=== PATIENT | male | born 1965 | race Caucasian/White ===

== ENCOUNTER 2016-05-22 17:48 | Observation (INO) | payer BC ==
--- NOTE | ~2016-05-22 | HP ---
History And Physical [address] [place]. [address] NAME: FAHAD RAM : 61 STATUS : ADM Abigail PAT#: [id number] AGE: 50 ADM/REG DATE : 05/22/16 MR#: [id number] REPORT SERV DATE: 05/23/16 DICTATED BY: DATE: REPORT STATUS : Draft TRANSCRIBED BY: MODL DATE: 05/23/16 DATE OF ADMISSION: 05/22/2016 CHIEF COMPLAINT/REASON FOR ADMISSION: Chest pain and known history of coronary artery disease. PRIMARY MAGAZINE JOURNALIST: Daksha Valdez M.D. HISTORY OF PRESENT ILLNESS: Mr. Fahad Ram is a very pleasant 50-year-old gentleman who is known to me from clinic. He has a known history of coronary artery disease, 2-vessel, in the mid anterior descending artery and distal circumflex artery and had a PCI to his left anterior descending artery in 11/2015. He was doing well on an outpatient basis and then yesterday at work he developed left-sided chest pain. It felt pressure like in nature. It was 6/10 in intensity. It radiated to his neck and his head. It was associated with shortness of breath and dizziness and lasted for approximately two hours. He was given nitroglycerin in EMS transport and it did not really help his chest pain. The patient is on anti-anginal agents including a long-acting nitroglycerin and calcium channel len and continues to present with chest pain. PAST MEDICAL HISTORY: 1. Coronary artery disease. Cardiac catheterization performed on 12/16/2015 demonstrated disease in the LAD that he underwent PCI with a drug-eluting stent at that time. The patient also had a 60% stenosis in the first obtuse marginal and the mid circumflex. 2. Dyspnea. 3. Hypertension. 4. Obstructive sleep apnea. SOCIAL HISTORY: The patient denies smoking, drinking, or using drugs. FAMILY HISTORY: Consistent with myocardial infarction and cardiac arrhythmias in his brother. His father had diabetes mellitus, congestive heart failure, hyperlipidemia, and history of arrhythmia. His mother had a history of myocardial infarction and hypertension as well as cardiac arrhythmias and congestive heart failure. REVIEW OF SYSTEMS: All systems were reviewed and is negative except for dictated in HPI. PHYSICAL EXAMINATION: VITAL SIGNS: Blood pressure 123/68, respirations 20, and oxygen saturations 98% on room air. GENERAL: Mr. Ram is a well-groomed 50-year-old gentleman, who is in no acute distress. NECK: No jugular venous distention. No carotid bruits auscultated. HEART: Regular rate and rhythm. Normal S1, S2. I could not appreciate murmurs, rubs, or gallops. LUNGS: Clear to auscultation in all iqbal. History And Physical [address] [address] NAME: FAHAD RAM : [birth year] STATUS : ADM Abigail PAT#: [id number] AGE: 50 ADM/REG DATE : 05/22/16 MR#: [id number] REPORT SERV DATE: 05/23/16 DICTATED BY: DATE: REPORT STATUS : Draft TRANSCRIBED BY: DELVIS DATE: 05/23/16 ABDOMEN: Soft and nontender. EXTREMITIES: Warm and well perfused. There is no pitting edema. Danny test performed of the right wrist demonstrated dual blood supply to the palm of the right hand. MUSCULOSKELETAL: No clubbing or cyanosis of digits. NEUROLOGIC: I could not appreciate focal neurologic deficits. DATA: Cardiac enzymes are negative x2. Hemoglobin 13.3, hematocrit 39.6, and platelet count is 126. Sodium 140, potassium 3.9, BUN 10, creatinine 0.76. An EKG performed on admission documented sinus bradycardia. Otherwise, there were no ischemic ST-T segment changes. Chest x-ray performed on admission documented no evidence of acute cardiopulmonary disease. Laboratory results: As below. The patient had a prior myocardial perfusion stress test, which has been performed in the past six months. Lipid panel performed on 05/23/2016 demonstrated total cholesterol of 110, HDL 50, LDL of 46, triglycerides of 73. Last classes myocardial perfusion stress test performed on 01/16/2016 demonstrated atypical chest pain throughout this study, but did not demonstrate ischemia. IMPRESSION/REPORT/PLAN: 1. Chest pain. 2. Known coronary artery disease, 2-vessel, status post PCI to the left anterior descending artery, 12/16/2015. 3. Hypertension. 4. Obstructive sleep apnea. RECOMMENDATIONS: 1. I discussed the risks, benefits, and alternatives of cardiac catheterization with the patient including heart attack, stroke, , kidney failure, irregular heart rhythms, need for emergency surgery, pain, bleeding, and infection, and the patient is agreeable to proceed. 2. We will continue his home medications including amlodipine, aspirin, atorvastatin, Coreg, isosorbide mononitrate, Brilinta, and lisinopril. Additional recommendations pending clinical course. LANA/DELVIS Daksha Valdez M.D. / [id number] History And Physical [address] [place]. [place]. [address] NAME: FAHAD RAM : 61 STATUS : ADM Abigail PAT#: [id number] AGE: 50 ADM/REG DATE : 05/22/16 MR#: [id number] REPORT SERV DATE: 05/23/16 DICTATED BY: DATE: REPORT STATUS : Draft TRANSCRIBED BY: MODL DATE: 05/23/16 CC: Alejandrina Arreola SARA E
[~2016-05-22 17:48] MED LIST: ASA5GR PO; ASAB PO; BRILINTA90 MG PO; CELEXA20 PO; DENIES HOME MEDS; IBU-200200 MG PO; IMDUR30 PO; LIPITOR10 PO; LIPITOR40 PO; MULTIPLE VIT PO; NITROQUICK0.4 MG SL; PRIN5 PO; PROAIR HFA INH
[2016-05-22 18:22] LABS: BASOPHILS 0.1 %; BASOPHILS ABSOLUTE 0.01 10/3/uL (0.0-0.16); EOSINOPHILS ABSOLUTE 0.43 10/3/uL (0.0-0.53); HEMATOCRIT 39.1 % (40.0-51.0); HEMOGLOBIN 13.5 g/dL (13.6-17.8); IMMATURE GRANULOCYTES 0.3 %; IMMATURE GRANULOCYTES ABSOLUTE 0.04 10/3/uL (0.0-0.11); LYMPHOCYTES ABSOLUTE 1.89 10/3/uL (0.67-4.30); MEAN CORPUS HGB CONC 34.5 g/dL (32.0-36.0); MEAN CORPUSCULAR HEMOGLOB 30.1 pg (26.0-34.0); MEAN CORPUSCULAR VOLUME 87.1 fL (80-100); MONOCYTES ABSOLUTE 1.01 10/3/uL (0.21-1.20); NEUTROPHILS 76.6 %; NEUTROPHILS ABSOLUTE 11.15 10/3/uL (2.02-8.40); PLATELET COUNT 241 10/3/uL (150-400); RBC DISTRIBUTION WIDTH 13.3 % (12.0-16.0); RED CELL COUNT 4.49 10/6/uL (4.7-6.1)
[2016-05-22 18:25] LABS: ER CBC TAT 0 Hrs 07 Mins; MANUAL DIFF NO %; WHITE BLOOD CELLS 14.5 10/3/uL (4.5-10.5)
[2016-05-22 18:32] LABS: INTERNATIONAL NORMAL RATI 1.3 UNITS (-); PARTIAL THROMBO TIME 40.4 SEC (22.5-37.2)
[2016-05-22 18:34] LABS: PROTIME (NOT ORD) 15.7 SEC (12.0-14.5)
[2016-05-22 18:39] LABS: CALCIUM, SERUM 8.2 MG/DL (8.5-10.4); CHEST PAIN PROFILE TAT 0 Hrs 21 Mins; CHLORIDE, SERUM 106 MMOL/L (96-112); CO2 (CARBON DIOXIDE) 26 MMOL/L (24-34); CREATININE 0.67 MG/DL (0.70-1.30); GFR AFRICAN AMERICAN 128 ML/MIN (>=60); GFR NON AFRICAN AMERICAN 110 ML/MIN (>=60); POTASSIUM, SERUM 3.9 MMOL/L (3.5-5.3); SODIUM, SERUM 140 MMOL/L (135-148); TROPONIN I <0.02 NG/ML (<0.05)
[2016-05-22 18:42] LABS: BUN (BLOOD UREA NITROGEN) 10 MG/DL (6-23); GLUCOSE, SERUM 82 MG/DL (60-99)
[2016-05-22] MEDS ORDERED: MULTIVIT/MIN PO (19:59)
[2016-05-22] MEDS ORDERED: COREG3 PO (20:06)
[2016-05-22] MEDS ORDERED: PRIN2.5 PO (20:06)
[2016-05-22] MEDS ORDERED: BRILINTA90 MG PO (20:06)
[2016-05-22] MEDS ORDERED: ASAB PO (20:06)
[2016-05-22] MEDS ORDERED: LIPITOR10 PO (20:06)
[2016-05-22] MEDS ORDERED: NORV25 PO (20:06)
[2016-05-22] MEDS ORDERED: IMDUR30 PO (20:07)
[2016-05-22] MEDS ORDERED: PROAIR HFA INH (20:07)
[2016-05-22] MEDS ORDERED: NITROSTAT0.4 MG SL (20:08)
[2016-05-22] MEDS ORDERED: FLONASE NAS (20:09)
[2016-05-22] MEDS ORDERED: CELEXA40 MG PO (20:09)
[2016-05-22] MEDS ORDERED: PROTONIX20 MG PO (20:09)
[2016-05-23 05:34] LABS: BASOPHILS 0.2 %; BASOPHILS ABSOLUTE 0.02 10/3/uL (0.0-0.16); EOSINOPHILS 5.6 %; EOSINOPHILS ABSOLUTE 0.53 10/3/uL (0.0-0.53); HEMATOCRIT 39.6 % (40.0-51.0); HEMOGLOBIN 13.3 g/dL (13.6-17.8); IMMATURE GRANULOCYTES 0.2 %; IMMATURE GRANULOCYTES ABSOLUTE 0.02 10/3/uL (0.0-0.11); LYMPHOCYTES 30.7 %; LYMPHOCYTES ABSOLUTE 2.89 10/3/uL (0.67-4.30); MEAN CORPUS HGB CONC 33.6 g/dL (32.0-36.0); MEAN CORPUSCULAR HEMOGLOB 29.8 pg (26.0-34.0); MEAN CORPUSCULAR VOLUME 88.6 fL (80-100); MEAN PLATELET VOLUME 10.1 fL (9.2-13.0); MONOCYTES 8.5 %; NEUTROPHILS 54.8 %; NEUTROPHILS ABSOLUTE 5.14 10/3/uL (2.02-8.40); PLATELET COUNT 216 10/3/uL (150-400); RBC DISTRIBUTION WIDTH 13.4 % (12.0-16.0); RED CELL COUNT 4.47 10/6/uL (4.7-6.1); WHITE BLOOD CELLS 9.4 10/3/uL (4.5-10.5)
[2016-05-23 05:37] LABS: MANUAL DIFF NO %
[2016-05-23 05:46] LABS: HDL CHOLESTEROL 50 MG/DL (> 39); SGPT(ALT) 19 U/L (5-65)
[2016-05-23 05:49] LABS: CHOL/HDL RATIO(NOT ORDER) 2.2 (0-5); CHOLESTEROL 110 MG/DL (< 200); LDL CHOLESTEROL 46 MG/DL (< 130); NON-HDL CHOLESTEROL 60 MG/DL (< 160); TRIGLYCERIDE 73 MG/DL (< 150)
[2016-05-23 15:32] LABS: BUN (BLOOD UREA NITROGEN) 13 MG/DL (6-23); CALCIUM, SERUM 8.5 MG/DL (8.5-10.4); CO2 (CARBON DIOXIDE) 26 MMOL/L (24-34); CREATININE 0.83 MG/DL (0.70-1.30); GFR AFRICAN AMERICAN 117 ML/MIN (>=60); GFR NON AFRICAN AMERICAN 101 ML/MIN (>=60); GLUCOSE, SERUM 67 MG/DL (60-99)
[2016-05-23 15:39] LABS: CHLORIDE, SERUM 105 MMOL/L (96-112); POTASSIUM, SERUM 3.9 MMOL/L (3.5-5.3); SODIUM, SERUM 138 MMOL/L (135-148)
[2016-05-24 05:03] LABS: BASOPHILS 0.2 %; BASOPHILS ABSOLUTE 0.02 10/3/uL (0.0-0.16); EOSINOPHILS 5.9 %; EOSINOPHILS ABSOLUTE 0.49 10/3/uL (0.0-0.53); HEMATOCRIT 41.2 % (40.0-51.0); HEMOGLOBIN 14.2 g/dL (13.6-17.8); IMMATURE GRANULOCYTES 0.2 %; IMMATURE GRANULOCYTES ABSOLUTE 0.02 10/3/uL (0.0-0.11); LYMPHOCYTES 30.3 %; MEAN CORPUS HGB CONC 34.5 g/dL (32.0-36.0); MEAN CORPUSCULAR HEMOGLOB 30.3 pg (26.0-34.0); MEAN PLATELET VOLUME 10.3 fL (9.2-13.0); MONOCYTES ABSOLUTE 0.58 10/3/uL (0.21-1.20); NEUTROPHILS 56.4 %; NEUTROPHILS ABSOLUTE 4.65 10/3/uL (2.02-8.40); PLATELET COUNT 228 10/3/uL (150-400); RED CELL COUNT 4.68 10/6/uL (4.7-6.1); WHITE BLOOD CELLS 8.3 10/3/uL (4.5-10.5)
[2016-05-24 05:07] LABS: MANUAL DIFF NO %
[2016-05-24 05:34] LABS: BUN (BLOOD UREA NITROGEN) 9 MG/DL (6-23); CALCIUM, SERUM 8.3 MG/DL (8.5-10.4); CHLORIDE, SERUM 108 MMOL/L (96-112); CO2 (CARBON DIOXIDE) 24 MMOL/L (24-34); CREATININE 0.64 MG/DL (0.70-1.30); GFR AFRICAN AMERICAN 130 ML/MIN (>=60); GFR NON AFRICAN AMERICAN 113 ML/MIN (>=60); GLUCOSE, SERUM 82 MG/DL (60-99); SODIUM, SERUM 140 MMOL/L (135-148)
== END 2016-05-24 12:25 | disposition home or self-care (01) ==
LOC: ER 17:48 → CDU1 22:26 → CDU2 23:08 → SSU1 05-23 13:12
PROVIDERS: Emergency Medicine; Internal Medicine Cardiovascular Disease
DX: I20.0 Unstable angina (principal); I25.10 Atherosclerotic heart disease of native coronary artery without angina pectoris; R06.00 Dyspnea, unspecified; I10 Essential (primary) hypertension; G47.33 Obstructive sleep apnea (adult) (pediatric)
CPT/HCPCS: 71010; 80048; 80061; 83735; 83880; 84460; 84484; 85025; 85610; 85730; 93005; 93458; 96372; 96374; 96375; 99152; 99153; 99285; A9270-GY; C1769; C1887; C1894; G0378; J2250; J2370; J2405; J3010; Q9967